=== PATIENT | female | born 1940 | race Caucasian/White ===

== ENCOUNTER 2017-03-24 20:39 | Inpatient (IN) | payer OTHER, MEDICARE ==
[~2017-03-24] VITALS: Ht 167.6 cm; Wt 83.9 kg
[~2017-03-24 20:39] MED LIST: ACET1TAB23 PO; AMLO5TAB2 PO; AMOX500C2 PO; INSU100I19 SQ; INSU100V28 SQ; LUBI24CA5 PO; ROSU20TA PO
--- NOTE | 2017-03-24 21:17 | NUR ---
DR. SIEGEL AT BEDSIDE [facility].
[2017-03-24 21:27] LABS: BASOPHILS % (AUTO) 0.3 % (0.0-2.0); EOSINOPHILS # (AUTO) 0.2 K/uL (0.0-0.7); EOSINOPHILS % (AUTO) 3.7 % (0.0-7.0); HEMATOCRIT 34.5 % (37-47); HEMOGLOBIN 11.8 G/DL (12.0-16.0); LYMPHOCYTES # (AUTO) 0.4 K/UL (0.8-4.8); LYMPHOCYTES % (AUTO) 9.3 % (20.5-51.5); MEAN CORPUSCULAR HEMOGLOBIN 29.9 UUG (27.0-31.0); MEAN CORPUSCULAR HGB CONC 34 g/dL (32.0-37.0); MEAN CORPUSCULAR VOLUME 87.2 FL (81.0-99.0); MONOCYTES # (AUTO) 0.5 K/UL (0.1-1.30); MONOCYTES % (AUTO) 9.8 % (0.0-11.0); NEUTROPHILS # (AUTO) 3.7 K/UL (1.8-8.9); NEUTROPHILS % (AUTO) 76.9 % (38.5-71.5); PLATELET COUNT (AUTO) 291 K/UL (150-450); RED BLOOD CELL COUNT(AUTO) 3.96 MIL/UL (4.2-5.4); WHITE BLOOD COUNT (AUTO) 4.8 K/UL (4.0-11.2)
[2017-03-24 21:34] LABS: CARBON DIOXIDE 28 mmol/L (21-32); CHLORIDE 104 mmol/L (98-107); CREATININE 1.8 mg/dL (0.6-1.3); POTASSIUM 4.8 mmol/L (3.5-5.1); UREA NITROGEN, BLOOD 35 mg/dL (7-18)
[2017-03-24 21:43] LABS: GLUCOSE 380 mg/dL (74-106)
[2017-03-24 21:47] LABS: ALANINE AMINOTRANSFERASE 22 U/L (14-59); ALKALINE PHOSPHATASE 81 U/L (50-136); ASPARTATE AMINOTRANSFERASE 14 U/L (15-37); BILIRUBIN,DIRECT 0.1 mg/dL (0.0-0.2); BILIRUBIN,TOTAL 0.6 mg/dL (0.2-1.0); TOTAL PROTEIN, SERUM 7.6 g/dL (6.4-8.2)
--- NOTE | 2017-03-24 22:53 | NUR ---
CALL PLACED TO [facility].
[2017-03-24] MEDS ORDERED: MULT-328 PO (23:27)
[2017-03-24] MEDS ORDERED: GLIM4TAB3 PO (23:27)
[2017-03-24] MEDS ORDERED: INSU300I SQ (23:27)
[2017-03-24] MEDS ORDERED: CHOL500062 PO (23:27)
[2017-03-24] MEDS ORDERED: EZET10TA13 PO (23:27)
[2017-03-24] MEDS ORDERED: CYAN10009 PO (23:27)
[2017-03-24] MEDS ORDERED: INSU100I4 SQ (23:27)
[2017-03-24] MEDS ORDERED: CALCIUM CARBONATE PO (23:27)
[2017-03-24] MEDS ORDERED: [UNRECOGNIZED DRUG - CODE] PO (23:27)
[2017-03-24] MEDS ORDERED: ALEN70TA45 PO (23:27)
--- NOTE | 2017-03-24 23:43 | NUR ---
Pt. admitted to [facility] , under care of Dr. TORRES Belongs List completed. REPORT CALLED TO ELOY TEJADA.
[2017-03-24 23:54] LABS: *BILIRUBIN,URIN NEGATIVE (NEGATIVE); *BLOOD, URINE Trace-lysed (NEGATIVE); *CLARITY,URINE CLEAR (CLEAR); *COLOR,URINE YELLOW (YELLOW); *KETONES,URINE NEGATIVE (NEGATIVE); *PROTEIN,URINE 1+ (NEGATIVE); *UROBILINOGEN,URINE 0.2 E.U./dl (NORMAL); LEUKOCYTE ESTERASE ,URINE TRACE (NEGATIVE); NITRITE, URINE NEGATIVE (NEGATIVE); PH,URINE 5.5 (5.0-8.0); UGLUCOSE 2+ (NEGATIVE)
--- NOTE | 2017-03-25 00:20 | NUR ---
PATIENT ARRIVED FROM ER VIA GURNEY. PATIENT IS ALERT, IN NO ACUTE DISTRESS. ADMITTED TO TELE UNDER THE CARE OF DR. BORGES. DX: CHEST PAIN. BELONGING LIST DONE, ADMISSION PROCESS AND CARE PLAN INITIATED. MD NOTIFIED FOR NEW ORDERS. SAFETY MEASURES IN PLACE, CALL LIGHT WITHIN REACH, BED ALARM ON. WILL CONTINUE TO MONITOR.
[2017-03-25 01:10] VITALS: BP 127/72
[2017-03-25 01:19] LABS: BACTERIA,URINE NONE SEEN /HPF (NONE SEEN); SQUAMOUS EPITHELIAL CELL,UR FEW /HPF (NONE SEEN)
[2017-03-25 04:00] VITALS: BP 125/60
[2017-03-25 07:10] LABS: ALANINE AMINOTRANSFERASE 23 U/L (14-59); ALKALINE PHOSPHATASE 66 U/L (50-136); ASPARTATE AMINOTRANSFERASE 16 U/L (15-37); BILIRUBIN,TOTAL 0.4 mg/dL (0.2-1.0); CARBON DIOXIDE 26 mmol/L (21-32); CHLORIDE 105 mmol/L (98-107); CHOLESTEROL 213 mg/dL (<200); CREATININE 1.6 mg/dL (0.6-1.3); GLUCOSE 282 mg/dL (74-106); HDL CHOLESTEROL 48 mg/dL (40-60); MAGNESIUM 1.7 mg/dL (1.8-2.4); PHOSPHOROUS 3.5 mg/dL (2.5-4.9); POTASSIUM 4.4 mmol/L (3.5-5.1); TOTAL PROTEIN, SERUM 6.8 g/dL (6.4-8.2); TRIGLYCERIDES 180 MG/DL (30-150); UREA NITROGEN, BLOOD 42 mg/dL (7-18)
[2017-03-25 08:21] LABS: HEMATOCRIT 33.6 % (37-47); HEMOGLOBIN 11.3 G/DL (12.0-16.0); MEAN CORPUSCULAR HGB CONC 34 g/dL (32.0-37.0); MEAN CORPUSCULAR VOLUME 89.4 FL (81.0-99.0); PLATELET COUNT (AUTO) 262 K/UL (150-450); RED BLOOD CELL COUNT(AUTO) 3.75 MIL/UL (4.2-5.4); WHITE BLOOD COUNT (AUTO) 4.4 K/UL (4.0-11.2)
[2017-03-25 09:02] LABS: THYROID STIMULATING HORMONE 2.043 mIU/mL (0.358-3.740)
--- NOTE | 2017-03-25 10:30 | NUR ---
PT AMBULATED WITH PT AND TOLERATED WELL. NO APPARENT DISTRESS NOTED, NO C/O PAIN.
[2017-03-25 10:47] LABS: BAND % (MANUAL) 3 % (0-10); EOSINOPHILS % (MANUAL) 3 % (0-8); LYMPHOCYTES % (MANUAL) 14 % (20-40); MONOCYTES % (MANUAL) 9 % (2-10); NEUTROPHILS % (MANUAL) 71 % (42-75)
[2017-03-25 12:05] VITALS: BP 138/85
[2017-03-25 16:17] VITALS: BP 131/69
[2017-03-25 20:00] VITALS: BP 141/66
--- NOTE | 2017-03-25 21:00 | NUR ---
RECEIVED TELEPHONE ORDERS FROM DR. BORGES TO DECREASE LEVEMIR FROM 25 UNITS TO 15 UNITS SQ HS. NEW ORDERS TAKEN AND CARRIED OUT.
[2017-03-26 05:02] VITALS: BP 137/75
[2017-03-26 06:35] LABS: ALANINE AMINOTRANSFERASE 20 U/L (14-59); ALKALINE PHOSPHATASE 70 U/L (50-136); ASPARTATE AMINOTRANSFERASE 15 U/L (15-37); BASOPHILS % (AUTO) 0.2 % (0.0-2.0); BILIRUBIN,TOTAL 0.4 mg/dL (0.2-1.0); CARBON DIOXIDE 27 mmol/L (21-32); CHLORIDE 104 mmol/L (98-107); CREATINE KINASE, TOTAL 23 U/L (26-192); CREATININE 1.4 mg/dL (0.6-1.3); EOSINOPHILS # (AUTO) 0.2 K/uL (0.0-0.7); EOSINOPHILS % (AUTO) 3.9 % (0.0-7.0); GLUCOSE 201 mg/dL (74-106); HEMATOCRIT 31.9 % (37-47); HEMOGLOBIN 11.3 G/DL (12.0-16.0); LYMPHOCYTES # (AUTO) 0.5 K/UL (0.8-4.8); LYMPHOCYTES % (AUTO) 10.7 % (20.5-51.5); MAGNESIUM 1.9 mg/dL (1.8-2.4); MEAN CORPUSCULAR HEMOGLOBIN 31.3 UUG (27.0-31.0); MEAN CORPUSCULAR HGB CONC 35 g/dL (32.0-37.0); MEAN CORPUSCULAR VOLUME 88.8 FL (81.0-99.0); MONOCYTES # (AUTO) 0.5 K/UL (0.1-1.30); MONOCYTES % (AUTO) 10.5 % (0.0-11.0); NEUTROPHILS # (AUTO) 3.6 K/UL (1.8-8.9); NEUTROPHILS % (AUTO) 74.7 % (38.5-71.5); PHOSPHOROUS 3.4 mg/dL (2.5-4.9); PLATELET COUNT (AUTO) 269 K/UL (150-450); POTASSIUM 4.5 mmol/L (3.5-5.1); RED BLOOD CELL COUNT(AUTO) 3.59 MIL/UL (4.2-5.4); TOTAL PROTEIN, SERUM 6.9 g/dL (6.4-8.2); UREA NITROGEN, BLOOD 35 mg/dL (7-18); WHITE BLOOD COUNT (AUTO) 4.8 K/UL (4.0-11.2)
--- NOTE | 2017-03-26 06:36 | NUR ---
PT SLEPT WELL, IN NO ACUTE DISTRESS. ACCUCHECKS ORDERED. NO SIGNIFICANT CHANGE OF CONDITION THROUGHOUT THE SHIFT. CALL LIGHT WITHIN REACH, BED ALARM ON. WILL CONTINUE TO MONITOR.
[2017-03-26 12:13] VITALS: BP 144/75
--- NOTE | 2017-03-26 14:12 | NUR ---
Visited patient room to obtain food preferences and assure patient likes her foods. The only concern was about tray that patient received was cold. Spoke to the diet office and request early tray for patient. Tolerating current diet,eating 100% of meals. Food preferences obtained. clearing distribution clerk obtained patient's menu for Tuesday. Addendum: 03/26/17 at [address] Amended: Links added.
[2017-03-26 16:00] VITALS: BP 105/86
[2017-03-26 20:08] VITALS: BP 113/63
--- NOTE | 2017-03-26 20:30 | NUR ---
PATIENT ENDORSED TO ELOY GRANADO. PT IS ALERT, IN NO ACUTE DISTRESS.
--- NOTE | 2017-03-26 23:00 | NUR ---
RECEIVED ENDORSEMENT FROM ELOY GRANADO. PT IS ALERT, IN NO ACUTE DISTRESS.
--- NOTE | 2017-03-26 23:30 | NUR ---
ENDORSED PATIENT TO ELOY ANTONY. REPORT GIVEN.
--- NOTE | 2017-03-27 | NUR ---
Pt asleep with no s/s of acute distress. No c/o dizziness at this time.
[2017-03-27 06:38] VITALS: BP 159/73
--- NOTE | 2017-03-27 06:41 | NUR ---
Pt in room alert awake, with no increase swelling or redness to left upper eyelid. Blood sugar noted 221. Denies any pain or chest pain at this time. No reaction to current IV Rocephin. Call light within reach.
[2017-03-27 07:11] LABS: BASOPHILS # (AUTO) 0.1 K/uL (0.0-8.0); BASOPHILS % (AUTO) 1.9 % (0.0-2.0); EOSINOPHILS # (AUTO) 0.2 K/uL (0.0-0.7); EOSINOPHILS % (AUTO) 3.6 % (0.0-7.0); HEMATOCRIT 32.9 % (37-47); HEMOGLOBIN 11.4 G/DL (12.0-16.0); LYMPHOCYTES # (AUTO) 0.5 K/UL (0.8-4.8); LYMPHOCYTES % (AUTO) 11.3 % (20.5-51.5); MEAN CORPUSCULAR HEMOGLOBIN 31.1 UUG (27.0-31.0); MEAN CORPUSCULAR HGB CONC 35 g/dL (32.0-37.0); MEAN CORPUSCULAR VOLUME 89.8 FL (81.0-99.0); MONOCYTES # (AUTO) 0.4 K/UL (0.1-1.30); MONOCYTES % (AUTO) 8.6 % (0.0-11.0); NEUTROPHILS # (AUTO) 3.6 K/UL (1.8-8.9); NEUTROPHILS % (AUTO) 74.6 % (38.5-71.5); PLATELET COUNT (AUTO) 266 K/UL (150-450); RED BLOOD CELL COUNT(AUTO) 3.67 MIL/UL (4.2-5.4); WHITE BLOOD COUNT (AUTO) 4.8 K/UL (4.0-11.2)
[2017-03-27 07:21] LABS: ALANINE AMINOTRANSFERASE 20 U/L (14-59); ALKALINE PHOSPHATASE 65 U/L (50-136); ASPARTATE AMINOTRANSFERASE 13 U/L (15-37); BILIRUBIN,TOTAL 0.3 mg/dL (0.2-1.0); CARBON DIOXIDE 27 mmol/L (21-32); CHLORIDE 106 mmol/L (98-107); CREATININE 1.5 mg/dL (0.6-1.3); GLUCOSE 221 mg/dL (74-106); MAGNESIUM 1.8 mg/dL (1.8-2.4); PHOSPHOROUS 3.9 mg/dL (2.5-4.9); POTASSIUM 4.8 mmol/L (3.5-5.1); TOTAL PROTEIN, SERUM 6.9 g/dL (6.4-8.2); UREA NITROGEN, BLOOD 42 mg/dL (7-18)
[2017-03-27 08:32] LABS: BAND % (MANUAL) 3 % (0-10); BASOPHILS % (MANUAL) 1 % (0-2); EOSINOPHILS % (MANUAL) 3 % (0-8); LYMPHOCYTES % (MANUAL) 10 % (20-40); MONOCYTES % (MANUAL) 6 % (2-10); NEUTROPHILS % (MANUAL) 77 % (42-75)
--- NOTE | 2017-03-27 09:03 | NUR ---
PATIENT COMPLAINED THAT SHE HAS NOT HAD A BOWEL MOVEMENT FOR A FEW DAYS DID NOT WANT TO TAKE THE DULCOLAX TABLETS ORDERED SO MD CALLED WITH ORDER FOR MILK OF MAGNESIA GIVEN ORDERED AND WILL OBSERVE EFFECTIVENESS.
--- NOTE | 2017-03-27 09:37 | NUR ---
NEW ORDERS NOTED FROM [employer] AND NOTED UNKNOWN IF PATIENT WILL BE DISCHARGED TODAY AT THIS TIME
[2017-03-27] MEDS ORDERED: CEPH500C2 PO (11:29)
[2017-03-27] MEDS ORDERED: INSU100I19 SQ (11:29)
[2017-03-27] MEDS ORDERED: ASPI81TA31 PO (11:29)
[2017-03-27] MEDS ORDERED: LACT1CAP57 PO (11:29)
[2017-03-27] MEDS ORDERED: AMLO5TAB2 PO (11:29)
[2017-03-27] MEDS ORDERED: Blood Sugar Diagnostic VI (11:29)
[2017-03-27] MEDS ORDERED: GENT3.5O4 LEFTEYE (11:29)
[2017-03-27] MEDS ORDERED: DOCU100C36 PO (11:29)
[2017-03-27] MEDS ORDERED: INSU100V28 SQ ×2 (11:29)
[2017-03-27 12:00] VITALS: BP 130/69
[2017-03-27] MEDS ORDERED: CEPH250C PO (12:38)
--- NOTE | 2017-03-27 12:48 | NUR ---
NEW ORDER TO DISCHARGE PATIENT HOME TODAY RECEIVED AND PATIENT AWARE STATED THAT SHE CALLED [employer] TO PICK HER UP AND TAKE HER TO THE TRAIN STATION ON ROUTE TO [facility].[place] REMOVED PATIENT IS BEING PREPPED FOR DISCHARGE AT THIS TIME.
--- NOTE | 2017-03-27 14:30 | NUR ---
PATIENT CAME TO THE NURSES STATED AND STATED THAT HER RIDE WAS HERE AT THE LOBBY ENTRANCE SO PATIENT DISCHARGED WITH DISCHARGE INSTRUCTIONS AND PRESCRIPTIONS AND PATIENT WAS ALSO INSTRUCTED BY [facility] PHARMACIST RE ALL HER MEDICATIONS BLOOD SUGAR CHECKS AND SLIDING SCALE COVERAGES COPY OF THE SLIDING SCALE GIVEN TO HER AND SHE EXPRESSED UNDERSTANDING.SHE WAS ALSO INSTRUCTED TO FOLLOW UP WITH HER PRIMARY DOCTOR FOR FOLLOW UP WITH HER DIABETES CONTROL AND STRESS TEST.ASSISTED TO THE LOBBY WITH ALL HER PERSONAL BELONGINGS AND HER HOME MEDICATIONS.
[2017-03-29 05:06] LABS: VIT D, 25-HYDROXY 20.7 ng/mL (30.0-100.0)
[2017-03-29 10:07] LABS: CALCITRIOL VIT D,1,25 DIHYDROX 35.3 pg/mL (19.9-79.3)
[2017-03-29 14:06] LABS: A/G RATIO 1.3 (0.7-1.7); ALBUMIN 3.5 g/dL (2.9-4.4); ALPHA-1-GLOBULIN 0.1 g/dL (0.0-0.4); ALPHA-2-GLOBULIN 0.5 g/dL (0.4-1.0); GAMMA GLOBULIN 1.2 g/dL (0.4-1.8); GLOBULIN, TOTAL 2.8 g/dL (2.2-3.9); M-SPIKE Not Observed g/dL (Not Observed)
== END 2017-03-27 14:30 | disposition home or self-care (01) | DRG 420 ==
LOC: ER 20:39 → TELE 23:58 → MED 03-25 21:48
PROVIDERS: ADMIT Internal Medicine; ATTEND Internal Medicine
DX: E11.65 Type 2 diabetes mellitus with hyperglycemia (principal); N17.0 Acute kidney failure with tubular necrosis; C85.90 Non-Hodgkin lymphoma, unspecified, unspecified site; E87.2 Acidosis; I13.0 Hypertensive heart and chronic kidney disease with heart failure and stage 1 through stage 4 chronic kidney disease, or unspecified chronic kidney disease; I50.32 Chronic diastolic (congestive) heart failure; E44.0 Moderate protein-calorie malnutrition; E88.09 Other disorders of plasma-protein metabolism, not elsewhere classified; I27.2 Other secondary pulmonary hypertension; E11.21 Type 2 diabetes mellitus with diabetic nephropathy; M94.0 Chondrocostal junction syndrome [Tietze]; E11.22 Type 2 diabetes mellitus with diabetic chronic kidney disease; E11.42 Type 2 diabetes mellitus with diabetic polyneuropathy; E11.319 Type 2 diabetes mellitus with unspecified diabetic retinopathy without macular edema; Z79.4 Long term (current) use of insulin; Z79.899 Other long term (current) drug therapy; N18.3 Chronic kidney disease, stage 3 (moderate); E83.42 Hypomagnesemia; E66.9 Obesity, unspecified; Z68.29 Body mass index [BMI] 29.0-29.9, adult; Z98.42 Cataract extraction status, left eye; Z98.41 Cataract extraction status, right eye; N39.0 Urinary tract infection, site not specified; K44.9 Diaphragmatic hernia without obstruction or gangrene; Z86.14 Personal history of Methicillin resistant Staphylococcus aureus infection; F41.8 Other specified anxiety disorders; G89.29 Other chronic pain; H04.129 Dry eye syndrome of unspecified lacrimal gland; D17.71 Benign lipomatous neoplasm of kidney; H00.014 Hordeolum externum left upper eyelid; R80.9 Proteinuria, unspecified; K27.9 Peptic ulcer, site unspecified, unspecified as acute or chronic, without hemorrhage or perforation; K59.00 Constipation, unspecified; Z87.440 Personal history of urinary (tract) infections; I70.0 Atherosclerosis of aorta; J98.11 Atelectasis; E04.1 Nontoxic single thyroid nodule; E78.5 Hyperlipidemia, unspecified; E67.3 Hypervitaminosis D; E83.52 Hypercalcemia; Z87.11 Personal history of peptic ulcer disease
CPT/HCPCS: 36415; 70030-TC; 71010; 82306; 82652; 83605; 83735; 83970; 84100; 84155; 84165; 84443; 85025; 85730; 87040; 87086; 93005; 93307; A4663; J0696; J1815; J7050; J7060